=== PATIENT | female | born 2005 | race African-American/Black ===

== ENCOUNTER 2024-05-18 08:52 | Emergency (ER) | payer OTHER, SELFPAY ==
[2024-05-18 09:07] VITALS: BP 120/73; PULSE 85; RESP 20; TEMP 36.5; O2SAT 99
[2024-05-18 09:11] VITALS: O2SAT 100
--- NOTE | 2024-05-18 09:30 | ED.ALLEREA ---
HPI - Allergic Reaction General Chief complaint: Allergic Reaction Stated complaint: lip swelling and hives on arms Time Seen by Provider: 05/18/24 09:05 Source: patient Mode of arrival: ambulatory Limitations: no limitations History of Present Illness HPI narrative: Pt is a 18-year-old female who presents to the ER with an allergic reaction. She reports she started experiencing hives/swelling on her fingers. The rash has spread through her hands and then up her arms. Pt not reports the rash and itching has moved through her whole body. She saw her PCP yesterday and they prescribed her Prednisone, Atarax, and advised her to follow-up with an supervising fire marshal. Pt reports this morning she noticed her bottom R lip was swelling, so she decided to come in for evaluation. She denies chest pain, shortness of breath, or difficulty swallowing. Related Data Allergies Allergy/AdvReac Type Severity Reaction Status Date / Time No Known Allergies Allergy Verified 05/18/24 08:53 Review of Systems Review of Systems: All systems reviewed & are unremarkable except as noted in HPI and below Exam Narrative: GENERAL: Well-appearing, well-nourished and in no acute distress. HEENT: Head normocephalic, atraumatic. Eyes pupils equal round and reactive to light, extraocular movements intact. Tympanic membranes normal. Nares patent. Oropharynx clear. NECK: Supple, normal range of motion, no JVD. No lymphadenopathy. CARDIAC: Regular rate and rhythm without murmurs, rubs or gallops. RESPIRATORY: Clear to auscultation bilaterally. No wheezes, rales or rhonchi. ABDOMEN: Soft, nontender, normoactive bowel sounds throughout, no guarding, no rebound. No masses appreciated. EXTREMITIES: Normal range of motion, no swelling, clubbing or other deformities. NEUROLOGICAL: Cranial nerves II through XII grossly intact, no focal deficits noted. Normal gait, normal speech. SKIN: Warm, dry, normal color, noticeable welts/rashes on pt's arms, legs, face, chest, and neck. Course Vital Signs Vital signs: Vital Signs Temperature 36.5 C 05/18/24 09:07 Pulse Rate 85 05/18/24 09:07 Respiratory Rate 20 05/18/24 09:07 Blood Pressure 120/73 05/18/24 09:07 Pulse Oximetry 99 05/18/24 09:07 Temperature 36.5 C 05/18/24 09:07 Pulse Rate 69 05/18/24 11:23 Respiratory Rate 16 05/18/24 11:23 Blood Pressure 106/86 05/18/24 11:23 Pulse Oximetry 100 05/18/24 11:23 Oxygen Delivery Room Air 05/18/24 09:11 MDM - Allergic Reaction MDM Narrative Medical decision making narrative: Pt is a 18-year-old female who presents to the ER with an allergic reaction. She reports she started experiencing hives/swelling on her fingers. The rash has spread through her hands and then up her arms. Pt not reports the rash and itching has moved through her whole body. She saw her PCP yesterday and they prescribed her Prednisone, Atarax, and advised her to follow-up with an supervising fire marshal. Pt reports this morning she noticed her bottom R lip was swelling, so she decided to come in for evaluation. She denies chest pain, shortness of breath, or difficulty swallowing. Will give pt solumedrol, pepcid,and oral Benadryl to see if her symptoms improve. Pt reports her symptoms have improved since the medications were administered. She reports she is ready for discharge. Pt verbalizes understanding of when she should return to the ER. She will follow-up with an supervising fire marshal as soon as possible. Pt should continue to take the prescriptions she was prescribed by her PCP (Atarax, Prednisone). [employer] will add Pepcid into her discharge medications. Differential Diagnosis Differential diagnosis: Likely anaphylaxis, allergic reaction, angioedema, contact dermatitis and adverse reaction to drug Medical Records Attestation: I reviewed the patient's medical records. Discharge Plan Discharge Clinical Impression: Allergic reaction, Urticaria Patient Disposition: [facility]
[2024-05-18] MEDS: FAMOTIDINE 20 MG/2 ML VIAL IV PUSH (09:38)
[2024-05-18] MEDS: diphenhydrAMINE HCl CAP 25 MG CAPSULE PO (09:38)
[2024-05-18] MEDS: methylPREDNISolone SOD SUCC 125 MG VIAL IV PUSH (09:39)
[2024-05-18 10:04] VITALS: BP 131/88; PULSE 75; RESP 18; O2SAT 100
[2024-05-18 11:23] VITALS: BP 106/86; PULSE 69; RESP 16; O2SAT 100
[2024-05-18 11:59] VITALS: BP 109/72; PULSE 89; RESP 18; TEMP 36.6; O2SAT 99
== END 2024-05-18 12:00 | disposition home or self-care (01) ==
PROVIDERS: Emergency Provider Registered Nurse; PCP Midwife
DX: T78.40XA Allergy, unspecified, initial encounter (principal); L50.0 Allergic urticaria; X58.XXXA Exposure to other specified factors, initial encounter
CPT/HCPCS: 96374; 96375; 99284; A9270; J2919